=== PATIENT | female | born 1965 | race Caucasian/White ===

== ENCOUNTER 2019-10-05 14:11 | Outpatient (CLI) | payer BC, SELFPAY ==
--- NOTE | ~2019-10-05 | XR_ITS ---
EXAMINATION: XR chest 2V 10/05/2019 14:33 INDICATION: Shortness of breath and cough. Fever. PROCEDURE: 2 view chest COMPARISON: 04/19/2012 FINDINGS: The lungs are clear. The cardiomediastinal silhouette is within normal limits. There are no pleural effusions. There is no pneumothorax suspected. IMPRESSION: 1: NO ACUTE CARDIOPULMONARY DISEASE. Reviewed, dictated and finalized at location A.
[2019-10-05 14:51] LABS: Hematocrit 37.5 % (37.0-47.0); Mean Corpuscular Hemoglobin 28.6 pg (26-34); Mean Corpuscular Volume 89.5 fl (80-100); Platelet Count Result 349 k/mm3 (150-375); Red Blood Count 4.19 M/mm3 (4.2-5.4); Red Cell Distribution Width 13.3 % (11.5-14.5); White Blood Count 5.9 K/mm3 (4.5-10.0)
[2019-10-05 15:02] LABS: Blood Urea Nitrogen 9 mg/dL (7-17); Calcium 8.8 mg/dL (8.4-10.2); Carbon Dioxide 31 mmol/L (22-30); Chloride 104 mmol/L (98-107); Estimated Glomerular Filt Rate > 60; Glucose 92 mg/dL (65-105); Potassium 3.7 mmol/L (3.4-5.0); Sodium 140 mmol/L (137-145)
== END 2019-10-05 14:12 | disposition home or self-care (01) ==
PROVIDERS: PCP Family Medicine; Visit Provider Physician Assistant Medical
DX: R06.02 Shortness of breath (principal); B34.9 Viral infection, unspecified
CPT/HCPCS: 36415; 71046; 80048; 85027

== ENCOUNTER 2019-10-10 14:12 | Outpatient (CLI) | payer BC, SELFPAY ==
--- NOTE | 2019-10-10 14:32 | ECHO_ITS ---
Patient Info Name: Princess Schulz Age: 54 years : 1965 Gender: Female Ht: 64 in Wt: 190 lbs BSA: 2.01 m2 HR: 105 bpm BP: 145 / 100 mmHg Heart Rhythm: Sinus Rhythm Exam Date: 10/10/2019 2:58 PM Exam Location: [facility] Patient Status: Outpatient Admit Date: 10/10/2019 Staff Ordering Physician: Malorie Portillo PAC Traffic Signal Technician: Jen Adames RDCS Attending Provider: Malorie Portillo PAC Referring Physician: Lindsey MONREAL; Exam Type: CA echo doppler color flow Study Info Indications R01.1 - Cardiac murmur, unspecified Complete two-dimensional, color flow and Doppler transthoracic echocardiogram is performed. Summary 1. Left ventricular chamber dimension is normal. 2. Left ventricular systolic function is normal, estimated at 60-65%. 3. The left ventricular diastolic function is grade I diastolic dysfunction. 4. E/e' 8 is minimally elevated. Left Ventricle E/e' 8 is minimally elevated. Left ventricular chamber dimension is normal. Left ventricular systolic function is normal, estimated at 60-65%. The left ventricular diastolic function is grade I diastolic dysfunction. Right Ventricle Right ventricular chamber dimension is normal. Right ventricular systolic function is normal. Left Atria Left atrial chamber dimension is normal. Right Atria Right atrial chamber dimension is normal. Aortic Valve The aortic valve is trileaflet. There is no aortic valve stenosis. There is no aortic valve regurgitation. Pulmonic Valve There is no pulmonic regurgitation. Mitral Valve There is no mitral valve stenosis. There is no mitral valve regurgitation. Tricuspid Valve There is no tricuspid valve regurgitation. Pericardium/Pleural There is no pericardial effusion. Inferior Vena Cava Normal inferior vena cava with >50% collapse upon inspiration consistent with normal right atrial pressure, 5 mmHg. Aorta The aortic root size at the sinus of Valsalva is normal. Left Ventricular Outflow Tract Name Value Normal LVOT 2D LVOT Diameter 2.0 cm LVOT Doppler LVOT Peak Gradient 4 mmHg LVOT Mean Gradient 2 mmHg LVOT VTI 23 cm LVOT VTI/AV VTI Ratio 0.8 LVOT Stroke Volume 73 ml Pulmonic Valve Name Value Normal RVOT Doppler RVOT Peak Gradient 3 mmHg PV Doppler PV Peak Gradient 5 mmHg Mitral Valve Name Value Normal MV Doppler
== END 2019-10-10 14:13 | disposition home or self-care (01) ==
PROVIDERS: PCP Family Medicine; Visit Provider Physician Assistant Medical
DX: R01.1 Cardiac murmur, unspecified (principal)
CPT/HCPCS: 93306

== ENCOUNTER 2019-10-18 16:02 | Outpatient (CLI) | payer BC, SELFPAY ==
[2019-10-23 14:58] LABS: EBV Nuclear Ab Antibody <18.00 U/mL (<18.00); EBV Nuclear Ab Interpretation Recent; EBV Virus Capsid Ag IgG Ab >750.00 U/mL (<18.00); EBV Virus Capsid Ag IgM Ab <36.00 U/mL (<36.00)
== END 2019-10-18 16:03 | disposition home or self-care (01) ==
PROVIDERS: PCP Family Medicine; Visit Provider Physician Assistant Medical
DX: B34.9 Viral infection, unspecified (principal)
CPT/HCPCS: 36415; 86664; 86665

== ENCOUNTER 2019-10-19 12:50 | Outpatient (CLI) | payer BC, SELFPAY ==
[2019-10-23 18:58] LABS: CMV IgM Antibody <30.00 AU/mL (<30.00)
[2019-10-23 19:31] LABS: CMV IgG Antibody <0.60 U/mL (<0.60)
== END 2019-10-19 12:51 | disposition home or self-care (01) ==
PROVIDERS: PCP Family Medicine; Visit Provider Physician Assistant Medical
DX: B34.9 Viral infection, unspecified (principal)
CPT/HCPCS: 36415; 86644; 86645

== ENCOUNTER 2019-10-26 10:43 | Outpatient (CLI) | payer BC, SELFPAY ==
[2019-10-26 11:14] LABS: Alanine Aminotransferase 19 U/L (4-35); Albumin Level 4.4 g/dL (3.5-5.1); Alkaline Phosphatase 64 U/L (38-126); Aspartate Amino Transferase 25 U/L (14-36); Bilirubin,Total 0.7 mg/dL (0.2-1.3); Blood Urea Nitrogen 9 mg/dL (7-17); Calcium 9.3 mg/dL (8.4-10.2); Carbon Dioxide 29 mmol/L (22-30); Chloride 104 mmol/L (98-107); Estimated Glomerular Filt Rate > 60; Glucose 93 mg/dL (65-105); Sodium 138 mmol/L (137-145)
--- NOTE | 2019-10-26 12:00 | ECG_ITS ---
Measurements Intervals [place] Rate: 79 P: 25 MN: 131 QRS: -12 QRSD: 96 T: 46 QT: 375 QTc: 431 Interpretive Statements SINUS RHYTHM BORDERLINE R WAVE PROGRESSION, ANTERIOR LEADS BORDERLINE ECG Electronically Signed On 10-26-2019 12:31:24 CDT by Gustavo Broussard D.O.
--- NOTE | 2019-11-11 12:07 | WPDHOLTEREM ---
Holter/Event Monitor Holter/Event Monitor Date of procedure: 10/28/19 Procedure Type: 48 hour holter monitor Indications: Palpitations Conclusion: 1. 48 hour holter monitor on 10/28/19. 2. Underlying rhythm is sinus rhythm. HR range 56-130 bpm; average HR 90 bpm. 3. There are 37 premature supraventricular complexes, 2 supraventricular couplets and 1 supraventricular triplet. No supraventricular tachycardia. 4. There are 2 premature ventricular complexes. No ventricular tachycardia. 5. No sinoatrial or atrioventricular blocks. No significant pauses greater than 2 seconds. 6. No symptoms available for correlation.
== END 2019-10-26 10:44 | disposition home or self-care (01) ==
PROVIDERS: PCP Family Medicine; Visit Provider Internal Medicine Cardiovascular Disease
DX: I25.10 Atherosclerotic heart disease of native coronary artery without angina pectoris (principal); R00.2 Palpitations; R94.31 Abnormal electrocardiogram [ECG] [EKG]
CPT/HCPCS: 36415; 80053; 93005; 93225; 93226

== ENCOUNTER 2019-12-19 16:58 | Outpatient (CLI) | payer BC, SELFPAY ==
[2019-12-19 17:22] LABS: Basophils Absolute Auto 0.1 K/mm3 (0.0-0.1); Basophils Percent Auto 1.4 % (0.2-1.2); Eosinophils Absolute Auto 0.2 K/mm3 (0-0.3); Eosinophils Percent Auto 3.7 % (0-4.4); Hematocrit 39.8 % (37.0-47.0); Hemoglobin 12.9 g/dL (12.0-15.0); Immature Granulocyte Absolute 0.02 K/mm3 (0.00-0.031); Immature Granulocyte Percent A 0.5 % (0-0.5); Lymphocytes Absolute Auto 0.86 K/mm3 (0.9-3.2); Lymphocytes Percent Auto 19.7 % (18.3-44.2); Mean Corpuscular HGB Conc 32.4 g/dl (32-36); Mean Corpuscular Hemoglobin 28.9 pg (26-34); Mean Corpuscular Volume 89.2 fl (80-100); Mean Platelet Volume 9.8 fl (7.4-10.4); Monocytes Absolute Auto 0.4 K/mm3 (0.1-0.6); Neutrophils Absolute Auto 2.9 K/mm3 (1.3-6.7); Neutrophils Percent Auto 66.7 % (45.5-73.1); Platelet Count Result 349 k/mm3 (150-375); Red Blood Count 4.46 M/mm3 (4.2-5.4); Red Cell Distribution Width 13.3 % (11.5-14.5); White Blood Count 4.4 K/mm3 (4.5-10.0)
[2019-12-19 17:33] LABS: Blood Urea Nitrogen 15 mg/dL (7-17); Calcium 9.2 mg/dL (8.4-10.2); Carbon Dioxide 27 mmol/L (22-30); Chloride 105 mmol/L (98-107); Estimated Glomerular Filt Rate > 60; Glucose 104 mg/dL (65-105); Potassium 4.6 mmol/L (3.4-5.0); Sodium 138 mmol/L (137-145)
[2019-12-19 17:48] LABS: Erythrocyte Sedimentation Rate 22 mm/hr (0-20)
[2019-12-22 21:55] LABS: ANA Cascade Screen Negative (Negative)
== END 2019-12-19 16:59 | disposition home or self-care (01) ==
LOC: ANHLAB 17:00
PROVIDERS: PCP Family Medicine; Visit Provider Physician Assistant Medical
DX: E55.9 Vitamin D deficiency, unspecified (principal)
CPT/HCPCS: 36415; 80048; 82306; 82607; 84443; 85025; 85652; 86038

== ENCOUNTER 2020-01-02 16:25 | Outpatient (CLI) | payer BC, SELFPAY ==
[2020-01-02 16:59] LABS: Basophils Absolute Auto 0.1 K/mm3 (0.0-0.1); Basophils Percent Auto 0.9 % (0.2-1.2); Eosinophils Absolute Auto 0.1 K/mm3 (0-0.3); Eosinophils Percent Auto 2.6 % (0-4.4); Hematocrit 36.2 % (37.0-47.0); Immature Granulocyte Absolute 0.01 K/mm3 (0.00-0.031); Immature Granulocyte Percent A 0.2 % (0-0.5); Lymphocytes Percent Auto 22.6 % (18.3-44.2); Mean Corpuscular HGB Conc 33.1 g/dl (32-36); Mean Corpuscular Hemoglobin 28.9 pg (26-34); Mean Corpuscular Volume 87.2 fl (80-100); Mean Platelet Volume 9.8 fl (7.4-10.4); Monocytes Absolute Auto 0.4 K/mm3 (0.1-0.6); Monocytes Percent Auto 7.2 % (2.6-8.5); Neutrophils Absolute Auto 3.5 K/mm3 (1.3-6.7); Neutrophils Percent Auto 66.5 % (45.5-73.1); Platelet Count Result 340 k/mm3 (150-375); Red Blood Count 4.15 M/mm3 (4.2-5.4); Red Cell Distribution Width 13.1 % (11.5-14.5); White Blood Count 5.3 K/mm3 (4.5-10.0)
[2020-01-02 17:13] LABS: Rheumatoid Factor < 8.6 IU/ML (<12)
== END 2020-01-02 16:26 | disposition home or self-care (01) ==
PROVIDERS: PCP Family Medicine; Visit Provider Physician Assistant Medical
DX: D72.9 Disorder of white blood cells, unspecified (principal); M25.50 Pain in unspecified joint
CPT/HCPCS: 36415; 85025; 86430

== ENCOUNTER 2020-02-29 02:52 | Outpatient (CLI) | payer BC, SELFPAY ==
[2020-02-29 18:39] LABS: SARS-CoV-2 RNA PCR Negative
== END 2020-02-29 02:53 | disposition home or self-care (01) ==
LOC: ANHCOVIDDT 02:52
PROVIDERS: PCP Family Medicine; Visit Provider Internal Medicine Critical Care Medicine
DX: R68.89 Other general symptoms and signs (principal); Z20.828 Contact with and (suspected) exposure to other viral communicable diseases
CPT/HCPCS: 87635; C9803; U0003

== ENCOUNTER 2020-03-02 07:00 | Outpatient (CLI) | payer BC, SELFPAY ==
--- NOTE | 2020-03-19 22:38 | WPDSLEEPSTUD ---
Sleep Study Date of Study: 03/02/20 Ordering Provider: Gustavo Broussard DO Interpreting Physician: Saundra Merino MD Sleep Study Type: Split Polysomnogram Height: 1.63 m Weight: 79.832 kg Body Mass Index: 30.2 Burns: 15 Reason for Sleep Study Hypersomnia Sleep History Princess Schulz is a 54 yo female with constant loud snoring and nonrestorative sleep. This has become worse in the last 6-9 months. She wakes up during the night. She occasionally wakes at night with shortness of breath aor heartburn. She occasionally has trouble sleeping with a cold, occasionally gasps for breath at night, Frequently has breathing problems at night witnessed by others. SHe rarely sweats excessively at night. She frequently notices her heart pounding at night, frequently flass asleep in the day, occasionally involuntarily, rarely while driving, never during physical exertion. She does not have loss of muscle tone with strong emotion. 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 She never feels paralyzed on waking or falling asleep, occasionally has vivid dream like scenes on waking or falling asleep, never is afraid to go to bed. She frequently has nightmares lately, occasionally remembers her dreams, frequently has racing thoughts. She has occasional feelings of sadness and depression, and frequently feels anxious. She frequently has muscular tension, occasionally notices parts of her body jerking. She does not kick during the night. She frequently has achy and crawly feelings in her legs, occasionally has leg pain at night, rarely has morning jaw pain, occasionally grinds her teeth during sleep. She constantly has pain in the day, occasionally is awakened by pain at night, frequently wakes feeling stiff in the morning with sore achy muscles and pain in the neck and spine. She has dizziness, fatigue, memory problems, insomnia, concentration difficulties, headaches, and palpitations. Normal bedtime is 11:00 p.m. to midnight, falling asleep within 30 to 60 minutes, waking 3-4 times at night and will stay awake for a while, lying in bed, turning the TV on and off, trying to return to sleep. She wakes between 6:30 am and 7:00 a.m. not feeling refreshed, keeping the same schedule on the weekends. She occasionally takes a nap, however a short nap is not refreshing. She is drowsy in the morning for 3 hours or longer, feels better in the afternoon than other times of day. Habits: never smoked tobacco; caffeine - 1-2 glasses on occasion; no alcohol. FOR[facility]LY [facility], LATER [facility] Past Medical History Medical History (Updated 03/19/20 @ 23:40 by Saundra Merino MD) Arthritis CAD (coronary artery disease) Depression with anxiety Candace-Wilson infection Essential hypertension Hyperlipidemia Palpitations Surgical History Surgical History (Updated 03/19/20 @ 23:01 by Saundra Merino MD) History of cervical spinal surgery History of delivery S/P cholecystectomy Social History Social History Smoking status: Never smoker Alcohol intake: never Medications diazepam 2 mg po b.i.d. p.r.n. duloxetine 30 mg po daily vitamin D2 50,000 units po weekly meloxicam 15 mg po daily Sleep Procedure This test was performed using the same and multiple channel system including EOG, EEG, submental EMG, EKG, nasal and oral airflow using thermistors and nasal pressure sensors, chest and abdominal belts for body position data, and pulse oximetry. Video monitoring was also performed. The study was scored using CMS guidelines. After the baseline portion the patient met criteria for a titration with an AHI of 21.8. Sleep Architecture Baseline During the baseline, recording time was 182.2 minutes, sleep time was 151.2 minutes; sleep efficiency was 83.1%. Sleep latency was short at 4.9 minutes consistent with hypersomnia. REM latency was 105.5 minutes, normal. There were 17 awakenin
[2020-03-19 23:52] VITALS: BMI 30.2
== END 2020-03-02 07:01 | disposition home or self-care (01) ==
PROVIDERS: PCP Family Medicine; Visit Provider Internal Medicine Cardiovascular Disease
DX: G47.33 Obstructive sleep apnea (adult) (pediatric) (principal)
CPT/HCPCS: 95811

== ENCOUNTER 2020-08-24 15:00 | Outpatient (CLI) | payer BC, SELFPAY | END 2020-08-24 15:01 | disposition home or self-care (01) | LOC: ANHCOVIDVC 15:00 | PROVIDERS: PCP Family Medicine | DX: Z23 Encounter for immunization (principal) | CPT/HCPCS: 0001A; 91300 ==

== ENCOUNTER 2020-09-14 14:57 | Outpatient (CLI) | payer BC, SELFPAY | END 2020-09-14 14:58 | disposition home or self-care (01) | LOC: ANHCOVIDVC 14:57 | PROVIDERS: PCP Family Medicine | DX: Z23 Encounter for immunization (principal) | CPT/HCPCS: 0002A; 91300 ==

== ENCOUNTER 2020-09-27 17:09 | Outpatient (CLI) | payer BC, SELFPAY ==
[2020-09-27 17:29] LABS: Basophils Absolute Auto 0.1 K/mm3 (0.0-0.1); Basophils Percent Auto 0.6 % (0.2-1.2); Eosinophils Absolute Auto 0.3 K/mm3 (0-0.3); Eosinophils Percent Auto 3.1 % (0-4.4); Hematocrit 42.3 % (37.0-47.0); Immature Granulocyte Absolute 0.03 K/mm3 (0.00-0.031); Immature Granulocyte Percent A 0.4 % (0-0.5); Lymphocytes Absolute Auto 0.92 K/mm3 (0.9-3.2); Lymphocytes Percent Auto 11.5 % (18.3-44.2); Mean Corpuscular HGB Conc 33.1 g/dl (32-36); Mean Corpuscular Hemoglobin 28.8 pg (26-34); Monocytes Absolute Auto 0.6 K/mm3 (0.1-0.6); Monocytes Percent Auto 7.6 % (2.6-8.5); Neutrophils Absolute Auto 6.2 K/mm3 (1.3-6.7); Neutrophils Percent Auto 76.8 % (45.5-73.1); Platelet Count Result 409 k/mm3 (150-375); Red Blood Count 4.86 M/mm3 (4.2-5.4); Red Cell Distribution Width 12.7 % (11.5-14.5)
[2020-09-27 17:41] LABS: Alanine Aminotransferase 28 U/L (4-35); Albumin Level 4.8 g/dL (3.5-5.1); Alkaline Phosphatase 72 U/L (38-126); Anion Gap 5 mmol/L (8-16); Aspartate Amino Transferase 40 U/L (14-36); Bilirubin,Total 0.6 mg/dL (0.2-1.3); Blood Urea Nitrogen 14 mg/dL (7-17); Calcium 9.7 mg/dL (8.4-10.2); Carbon Dioxide 32 mmol/L (22-30); Chloride 103 mmol/L (98-107); Cholesterol 232 mg/dL (0-200); Estimated Glomerular Filt Rate > 60; Glucose 106 mg/dL (65-105); HDL Direct 63 mg/dL; Potassium 3.5 mmol/L (3.4-5.0); Sodium 140 mmol/L (137-145); Triglycerides 139 mg/dL (<150)
[2020-09-27 17:56] LABS: LDL Cholesterol Direct 120 mg/dL
[2020-09-27 18:44] LABS: Vitamin D 25 Hydroxy < 12.8 ng/mL
== END 2020-09-27 17:10 | disposition home or self-care (01) ==
LOC: ANHLAB 17:12
PROVIDERS: PCP Family Medicine; Visit Provider Nurse Practitioner Family
DX: E78.5 Hyperlipidemia, unspecified (principal); R68.89 Other general symptoms and signs; Z86.79 Personal history of other diseases of the circulatory system; R60.9 Edema, unspecified; Z13.29 Encounter for screening for other suspected endocrine disorder; E55.9 Vitamin D deficiency, unspecified; E53.8 Deficiency of other specified B group vitamins
CPT/HCPCS: 36415; 80053; 80061; 82306; 82607; 84443; 85025

== ENCOUNTER → 2020-09-29 06:44 | Outpatient (CLI) | payer BC, SELFPAY ==
[2020-09-29 12:23] LABS: Influenza Control Positive
[2020-09-30 00:41] LABS: SARS-CoV-2 RNA PCR Negative
== END ==
PROVIDERS: PCP Family Medicine; Visit Provider Nurse Practitioner Family
DX: Z20.822 Contact with and (suspected) exposure to COVID-19 (principal); R68.89 Other general symptoms and signs
CPT/HCPCS: 87804; C9803; U0003; U0005

== ENCOUNTER → 2020-10-23 04:29 | Outpatient (CLI) | payer BC, SELFPAY ==
[2020-10-23 20:07] LABS: SARS-CoV-2 RNA PCR Negative
== END ==
PROVIDERS: PCP Family Medicine; Visit Provider Podiatrist Foot & Ankle Surgery
DX: Z01.812 Encounter for preprocedural laboratory examination (principal); Z20.828 Contact with and (suspected) exposure to other viral communicable diseases
CPT/HCPCS: C9803; U0003; U0005

== ENCOUNTER 2020-10-26 03:52 | Day surgery (SDC) | payer BC, SELFPAY ==
[2020-10-17 11:49] VITALS: BMI 30.9
--- NOTE | 2020-10-25 08:36 | WPDANESEPPF ---
Anes - Initial Pre Proc Eval Procedure: Operation Date: 10/26/20 08:30 Proposed Procedures p RetroCalcaneal Exostectomy, Detachment And Reattachment Of Achilles Tendon, Right Foot - Luís Dolan JR, MD Date/Time: 10/25/20 08:36 Surgeon: Luís Dolan JR, MD Pre Op Diagnosis: achilles tendinopathy Patient Data Age: 55 Gender: F Height: 1.63 m Weight: 81.65 kg Allergies Allergy/AdvReac Type Severity Reaction Status Date / Time Penicillins Allergy Unknown Unknown Verified 10/26/20 07:05 codeine AdvReac Mild Nausea and Verified 10/26/20 07:05 Vomiting oxycodone AdvReac Mild Nausea and Verified 10/26/20 07:05 Vomiting Home Medications Medication Instructions Recorded Confirmed Type [id number]-xzmqifytngsga-qyatiojv 250 1 tablet PO Q4-6H PRN 10/24/19 10/26/20 History mg-250 mg-65 mg tablet diazepam 2 mg tablet 2 mg PO BID PRN #30 tablet 02/06/20 10/26/20 Rx cholecalciferol (vitamin D3) 1,250 1,250 mcg PO WEEKLY 56 Days #8 cap 09/28/20 10/26/20 Rx mcg (50,000 unit) capsule diclofenac sodium [Voltaren] 2 g TOPICAL QID 10/17/20 10/26/20 History Patient hx anesthesia problems: none Family hx anesthesia problems: none PMFSH Past Medical History Medical History (Updated 10/25/20 @ 08:36 by Shon Bundy DO) Arthritis CAD (coronary artery disease) Depression with anxiety Candace-Wilsno infection Essential hypertension NOT TAKING ANY MEDICATION Palpitations Surgical History Surgical History History of cervical spinal surgery History of delivery S/P cholecystectomy Social History Social History Smoking status: Never smoker Alcohol intake: never Substance use: never Substance use type: does not use Living arrangements: with family Spiritual care concerns: No Anes - Eval Final PreProcedure Day of Procedure 10/25/20 08:36 Patient weight: obese Heart: regular rate and rhythm Lungs: clear to auscultation and normal air movement Airway: Mallampati scale class II Neurological: alert and oriented Last oral intake: >/= 8 hours ASA classification: III Emergent: no Anesthetic plan: proceed Anesthesia type and monitoring: general LMA and standard monitoring Informed Consent: The patient's anesthetic plan and its attendant risks and benefits were discussed with the patient/family/POA. Questions were solicited and answers provided to the satisfaction of the patient/family/POA.
[2020-10-26] VITALS (9 sets, daily range): BP systolic 101–131; BP diastolic 60–77; PULSE 80–100; RESP 10–18; TEMP 36.2–36.7; O2SAT 96–100
--- NOTE | ~2020-10-26 | XR_ITS ---
EXAMINATION: XR surgery orthopedic EXAM DATE: 10/26/2020 14:50 INDICATION: Right foot calcaneal exostosis. TECHNIQUE: Fluoroscopy used during XR surgery orthopedic performed by Dr. Luís Dolan JR MD. Radiologist was not present for the imaging or procedure. Total fluoroscopic time of 9 seconds. The DAP for this procedure was 1.1 cGycm2. A total of 3 images sent to PACS from the exam. FINDINGS: There is soft tissue surgical defect along the posterior aspect of the calcaneus, underlyi ng osteotomy. Correlate with procedure note. IMPRESSION: Fluoroscopy used during right calcaneal surgery. Reviewed, dictated and finalized at location A.
[2020-10-26] MEDS: LACTATED RINGERS 1,000 ML 30 ML IV CONT ×2 (07:20→09:53)
--- NOTE | 2020-10-26 07:20 | WPDHPUPDATE1 ---
History and Physical Update Update Date/Time: 10/26/20 07:20 History and Physical has been reviewed, including an updated exam of the patient. There are NO changes in the patient's condition. Risks, benefits, and alternatives have been discussed and questions answered. Patient agrees to proceed with procedure.
[2020-10-26] MEDS: CLINDAMYCIN 900 MG/D5W 50 ML 900 MG/50 ML PIGGYBACK 50 MG IVPB (08:19)
--- NOTE | 2020-10-26 09:54 | PM.PROC ---
Procedure Note - Detailed Date of procedure: 10/26/20 Pre-op diagnosis: achilles tendinopathy Achilles Insertional Calcific Tendinosis right foot Post-op diagnosis: same Procedure performed: Retrocalcaneal esostectomy with detachment and reattachement of the Achilles Tendon Anesthesia: GETA and local Surgeon: Luís Dolan JR, DPM Estimated blood loss (mL): 1 Drains: No Packing: No Pathology: yes (Retrocalcaneal calcification sent for gross and histopathology) Complications: No immediate complications Condition: stable Disposition: same day Findings: Under mild sedation, the patient was brought to the operating room, placed on the operating table in the prone position. A pneumatic thigh tourniquet was placed about the patient's right thigh . Following general anesthesia I performed a local anesthetic nerve block with 20cc's of Exparel along with a proximal tibial nerve block. The right foot and distal leg was then scrubbed, prepped, and draped in the usual aseptic manner. An Esmarch bandage was then used to examine the patient's right foot and pneumatic thigh tourniquet was then inflated. Surgery began in the following manner. Attention was directed to the posterior aspect of right leg where a curvilinear J shaped incision was made lateral to the retrocalcaneal exostosis which was palpable. The incision was made starting 6cm above the insertion of the Achilles and extending 3cm inferior and medial to the calcaneus. The incision was continued deep down through the subcutaneous tissues using sharp and blunt dissection. All bleeders were cauterized as necessary. At this point dissection was continued exposing the the insertional component of the Achilles Tendon. There was noted hypertrophy to the distal tendon. A midsubstance linear Achilles tendon incision was made exposing a large intrasubstance calcified region of bone which was carefully excised and sent for gross and histopathology. There was a large posterior and superior exostosis noted which was resected with an osteotome and mallet and feathered smooth with a sagittal saw blade. All rough edges were smoothed with a power dada and bone rasp. The area was flushed with copious amounts of sterile saline. Fluoroscopy was used to make sure that enough of the retrocalcaneal region was resected approximately 3m from superior to inferior and medial to lateral and 2cm from posterior to anterior. Next, utilizing standard principle and techniques the Arthrex SpeedBridge system was used to reattach the debulked Achilles tendon to the posterior calcaneus. Comparable tension to the contralateral foot was maintained. Adequate stable reattachment was noted. I flushed the wound site with copious amounts of sterile saline. Next, the paratenon and overlying subcutaneous tissue was reapproximated with 3-0 Vicryl and 4-0 Vicryl correspondingly. Next, the skin was reapproximated and coapted util 4-0 Monocryl in running subcuticular suture fashion technique. Upon completion of the procedure, the incision was dressed with Adaptic, 4 x 4's, Kerlix, and Ti Wrap. The pneumatic thigh tourniquet was then deflated and a prompt hyperemic response noted to all digits of the right foot. A posterior splint was then applied. The patient did very well with the procedure and the anesthesia. He was transferred to the recovery room with vital signs stable and vascular status intact to all toes of the right foot. Following a period of postoperative monitoring, the patient will be discharged home on the following written and oral postoperative instructions: 1. Keep the dressing clean, dry, and intact. Use a cast protector bag with showers. 2. The patient to be strictly nonweightbearing with a knee scooter. 3. The patient should ice and elevate the right foot when at rest. 4. The patient to contact Dr. Dolan for all postop care and if any problems arise. 5. Prescriptions were written for Percocet 5/325 dispensed 40 to
[2020-10-26] MEDS: fentaNYL CITRATE INJ (*CRX) 100 MCG/2 ML VIAL 25 MCG IV PUSH ×6 (10:11→11:01)
--- NOTE | 2020-10-26 11:06 | SUR.PHASEII ---
[id number] PT STATES SHE SPOKE WITH DR FAN IN REGARDS TO PAIN MEDICATION POST OP. PT & DR AGREED TO SEND PERCOCET HOME ALONG WITH AN ANTIMEDIC MEDICATION.
== END 2020-10-26 11:45 | disposition home or self-care (01) ==
PROVIDERS: PCP Family Medicine; Visit Provider Podiatrist Foot & Ankle Surgery
PROC: (CPT 27650; principal; 2020-10-26 08:30)
DX: M65.271 Calcific tendinitis, right ankle and foot (principal); I25.10 Atherosclerotic heart disease of native coronary artery without angina pectoris; I10 Essential (primary) hypertension; F41.8 Other specified anxiety disorders; E66.9 Obesity, unspecified; Z68.30 Body mass index [BMI] 30.0-30.9, adult
CPT/HCPCS: 28118; 88304; 88309; 88311; A9270; C1713; C9290; C9803; J0330; J1100; J2250; J2405; J2704; J3010; J7120; U0003; U0005

== ENCOUNTER → 2021-03-18 09:10 | Outpatient (CLI) | payer BC, SELFPAY ==
[2021-03-18 20:20] LABS: SARS-CoV-2 RNA PCR Negative
== END ==
PROVIDERS: PCP Family Medicine; Visit Provider Physician Assistant Medical
DX: R09.89 Other specified symptoms and signs involving the circulatory and respiratory systems (principal); Z20.822 Contact with and (suspected) exposure to COVID-19
CPT/HCPCS: C9803; U0003; U0005

== ENCOUNTER 2021-03-27 17:24 | Outpatient (CLI) | payer BC, SELFPAY ==
--- NOTE | ~2021-03-27 | XR_ITS ---
EXAMINATION: XR chest 2V DATE: 03/27/2021 17:39 INDICATION: Acute bronchitis, cough TECHNIQUE: PA and lateral views of the chest are obtained. COMPARISON: 10/05/2019 FINDINGS: The lungs are free of acute opacities. There is no pleural effusion or pneumothorax. The ca rdiomediastinal silhouette is normal. There is exaggerated kyphosis of the lower thoracic spine. Daniel ges of anterior fusion are seen in the lower cervical spine. There are cholecystectomy clips in the r ight upper quadrant. IMPRESSION: 1. No acute cardiopulmonary abnormality. Reviewed, dictated and finalized at location A.
== END 2021-03-27 17:25 | disposition home or self-care (01) ==
PROVIDERS: PCP Family Medicine; Visit Provider Nurse Practitioner Family
DX: J20.9 Acute bronchitis, unspecified (principal)
CPT/HCPCS: 71046

== ENCOUNTER 2021-07-09 16:09 | Outpatient (CLI) | payer BC, SELFPAY ==
--- NOTE | ~2021-07-09 | XR_ITS ---
EXAMINATION: XR_CERV2-3V_CR DATE: 07/09/2021 16:37 INDICATION: Left arm numbness and tingling. TECHNIQUE: 3 views of cervical spine on 4 radiographs were obtained. COMPARISON: Cervical spine radiographs 12/15/2014, MRI 11/01/2016 FINDINGS: There is 2 mm retrolisthesis of C4 on C5. There is 3 degrees dextrocurvature of cervicothor acic spine. Vertebral body heights are normal. There are changes of anterior fusion procedure from C5 to C7 with healed interbody bone graft and anterior plate and screws. There is mildly decreased disc height at C3-C4 and C4-C5. At C4-C5, there is mild right and moderate left uncovertebral joint osteo arthritis. The facet joints are unremarkable. There is mild central canal stenosis at C4-C5. No preve rtebral soft tissue swelling. IMPRESSION: 1. Mild cervical spondylosis. 2. Anterior fusion procedure from C5 to C7. Reviewed, dictated and finalized at location E. FRAMER
[2021-07-09 17:40] LABS: Basophils Absolute Auto 0.1 K/mm3 (0.0-0.1); Basophils Percent Auto 0.6 % (0.2-1.2); Eosinophils Percent Auto 0.2 % (0-4.4); Hematocrit 47.4 % (37.0-47.0); Hemoglobin 15.5 g/dL (12.0-15.0); Immature Granulocyte Absolute 0.04 K/mm3 (0.00-0.031); Immature Granulocyte Percent A 0.5 % (0-0.5); Lymphocytes Absolute Auto 1.19 K/mm3 (0.9-3.2); Lymphocytes Percent Auto 14.6 % (18.3-44.2); Mean Corpuscular HGB Conc 32.7 g/dl (32-36); Mean Corpuscular Volume 88.8 fl (80-100); Mean Platelet Volume 9.3 fl (7.4-10.4); Monocytes Absolute Auto 0.7 K/mm3 (0.1-0.6); Monocytes Percent Auto 8.3 % (2.6-8.5); Neutrophils Absolute Auto 6.2 K/mm3 (1.3-6.7); Neutrophils Percent Auto 75.8 % (45.5-73.1); Platelet Count Result 467 k/mm3 (150-375); Red Blood Count 5.34 M/mm3 (4.2-5.4); Red Cell Distribution Width 13.4 % (11.5-14.5); White Blood Count 8.2 K/mm3 (4.5-10.0)
[2021-07-09 17:49] LABS: Alanine Aminotransferase 33 U/L (4-35); Albumin Level 5.3 g/dL (3.5-5.1); Alkaline Phosphatase 76 U/L (38-126); Anion Gap 10 mmol/L (8-16); Aspartate Amino Transferase 30 U/L (14-36); Bilirubin,Total 1.1 mg/dL (0.2-1.3); Blood Urea Nitrogen 21 mg/dL (7-17); Calcium 10.3 mg/dL (8.4-10.2); Carbon Dioxide 26 mmol/L (22-30); Chloride 101 mmol/L (98-107); Cholesterol 238 mg/dL (0-200); Estimated Glomerular Filt Rate > 60; Glucose 119 mg/dL (65-110); HDL Direct 49 mg/dL; Potassium 4.2 mmol/L (3.4-5.0); Sodium 137 mmol/L (137-145); Triglycerides 121 mg/dL (<150)
[2021-07-09 18:00] LABS: LDL Cholesterol Direct 137 mg/dL
[2021-07-09 18:08] LABS: Add Urine Microscopic? YES; Appearance Urine Cloudy (Clear); Bacteria Urine Trace /hpf; Bilirubin Urine Negative (Negative); Color Urine Yellow (Yellow); Glucose Urine UA Negative (Negative); Ketones Urine Trace mg/dL (Negative); Leukocyte Esterase Ur Trace LEU/UL (Negative); Mucus Urine Heavy /lpf; Nitrate Urine Positive (Negative); Protein Urine 1+ mg/dL (Negative); Specific Grav Ur 1.029 (1.001-1.035); Squamous Epithelial Cell Urine Many /hpf (Few); Urobilinogen Urine Negative mg/dL (<2.0); WBC Urine 16-20 /hpf
[2021-07-09 18:14] LABS: Blood Urine Negative (Negative)
[2021-07-09 18:57] LABS: Vitamin D 25 Hydroxy 19.7 ng/mL
[2021-07-12 14:45] LABS: CMV IgM Antibody <30.00 AU/mL (<30.00)
[2021-07-13 21:33] LABS: EBV Nuclear Ab Antibody <18.00 U/mL (<18.00); EBV Nuclear Ab Interpretation Recent; EBV Virus Capsid Ag IgG Ab >750.00 U/mL (<18.00); EBV Virus Capsid Ag IgM Ab <36.00 U/mL (<36.00)
[2021-07-14 17:30] LABS: CMV IgG Antibody <0.60 U/mL (<0.60)
== END 2021-07-09 16:10 | disposition home or self-care (01) ==
LOC: ANHIMG 16:13
PROVIDERS: PCP Family Medicine; Visit Provider Nurse Practitioner Family
DX: M79.602 Pain in left arm (principal); R74.8 Abnormal levels of other serum enzymes; R53.83 Other fatigue; E55.9 Vitamin D deficiency, unspecified; B27.90 Infectious mononucleosis, unspecified without complication; Z98.1 Arthrodesis status; M47.812 Spondylosis without myelopathy or radiculopathy, cervical region
CPT/HCPCS: 36415; 72040; 80053; 80061; 81001; 82306; 82607; 84443; 85025; 86644; 86645; 86664; 86665; 87077; 87086; 87186

== ENCOUNTER 2021-08-19 14:14 | Emergency (ER) | payer BC, SELFPAY ==
[2021-08-19] VITALS (7 sets, daily range): BP systolic 168–199; BP diastolic 79–98; PULSE 73–101; RESP 10–24; TEMP 36.7; O2SAT 98–100
--- NOTE | ~2021-08-19 | XR_ITS ---
XR chest 2V DATE: 08/19/2021 16:04 INDICATION: Shortness of breath. Bilateral edema for 3 days TECHNIQUE: AP and lateral views COMPARISON: 03/27/2021 2 view chest FINDINGS: Status post anterior cervical spine fusion at approximately C6-T1. Heart size is within normal range. No hilar or mediastinal enlargement. No pulmonary infiltrate or co nsolidation, pleural effusion or pulmonary vascular congestion or pneumothorax. Diffuse osteopenia. IMPRESSION: No active cardiopulmonary disease Reviewed, dictated and finalized at location A.
--- NOTE | ~2021-08-19 | US_ITS ---
EXAMINATION:US venous doppler LE BI INDICATION:Leg swelling TECHNIQUE: Multiple grayscale, color flow and Doppler images of the right and left lower extremity de ep venous systems were obtained and reviewed. COMPARISON:No prior studies for comparison. FINDINGS: The common femoral, superficial femoral and popliteal veins demonstrate normal respiratory variation, augmentation and compressibility. Color flow is also seen within the posterior tibial, pe roneal, greater saphenous and profunda veins. IMPRESSION: 1: No lower extremity deep venous thrombosis. Reviewed, dictated and finalized at location B.
--- NOTE | 2021-08-19 15:41 | ECG_ITS ---
Measurements Intervals [place] Rate: 71 P: 4 MT: 147 QRS: -16 QRSD: 112 T: 37 QT: 401 QTc: 437 Interpretive Statements SINUS RHYTHM MODERATE INTRAVENTRICULAR CONDUCTION DELAY [110+ ms QRS DURATION] COMPARED TO ECG 10/26/2019 12:14:33 INTRAVENTRICULAR CONDUCTION DELAY NOW PRESENT Electronically Signed On 08-20-2021 11:50:43 CDT by Carla Mcarthur M.D.
[2021-08-19] MEDS: FUROSEMIDE INJ 40 MG/4 ML VIAL IV PUSH (16:15)
--- NOTE | 2021-08-19 16:15 | ED.GENADULT ---
HPI - General Adult General Chief complaint: Shortness of Breath/Dyspnea Stated complaint: LE swelling Time Seen by Provider: 08/19/21 15:42 Source: patient and RN notes reviewed Mode of arrival: ambulatory Limitations: no limitations History of Present Illness HPI narrative: This is a 56 year old female with history of hypertension and anxiety who presents for evaluation of bilateral leg swelling. Patient has long history of pedal edema, but her swelling worsened 5 days ago. She has bilateral leg swelling up to her knees. 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 She reports severe pain to her legs due to her swelling. She denies chest pain. She has intermittent shortness of breath. She denies history of congestive heart failure and she does not take diuretics. She is hypertensive in ER and she has been off her blood pressure medication for a long time. She denies any recent travel. Related Data Home Medications Medication Instructions Recorded Confirmed [id number]-ifvegptejuott-bjhbjvor 250 1 tablet PO Q4-6H PRN 10/24/19 06/27/21 mg-250 mg-65 mg tablet Allergies Allergy/AdvReac Type Severity Reaction Status Date / Time Penicillins Allergy Unknown Unknown Verified 08/19/21 14:21 codeine AdvReac Mild Nausea and Verified 08/19/21 14:21 Vomiting oxycodone AdvReac Mild Nausea and Verified 08/19/21 14:21 Vomiting Review of Systems Review of Systems: All systems reviewed & are unremarkable except as noted in HPI and below PMFSH Past Medical History Medical History (Updated 08/19/21 @ 18:46 by Tianna Cristina MD) Achilles rupture, right Arthritis Bone spur CAD (coronary artery disease) Depression with anxiety Candace-Wilson infection Essential hypertension NOT TAKING ANY MEDICATION Palpitations Tendon calcification Surgical History Surgical History (Updated 07/18/21 @ 12:12 by Timothy Quispe NP) History of cervical spinal surgery History of delivery S/P cholecystectomy Family History Family History Father No problems noted. Mother No problems noted. Sibling No problems noted. 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 Gender identity (if verbalized by the patient): Female Spiritual care concerns: No Exam Const: General: alert Orientation/consciousness: patient oriented x3 Other: mild distress due to leg pain Eyes: EOM: EOMs intact bilaterally Chest: Chest palpation & inspection: normal inspection of the chest Resp: Effort & Inspection: normal respiratory effort and no retractions Auscultation: clear to auscultation bilaterally Cardio: Rate: regular rate Rhythm: regular rhythm Heart sounds: no murmurs GI: GI Palp: Yes Soft to palpation, No Tenderness to palpation present (GI) and No Guarding due to palpation present (GI) Auscultation: normal bowel sounds : General: Yes no CVA tenderness Skin: General skin exam: normal color Rashes: no rashes Neuro: General: patient oriented x3, moves all extremities and CN's II-XI intact bilaterally Extrem: Other: bilateral leg swelling, pedal up to knee, nonpitting. Psych: Mental Status: mental status grossly normal Affect: normal affect Course Reevaluation(s) Reevaluation #1: Patient presented with leg edema. No hypoxia or pulmonary edema to suggest need for hospitalization. She has been hypertensive according to record. I spoke with Dr. Hilario who will follow up with patient. AGree with discharge with leslie. Date: 08/19/21 Time: 18:43 Vital Signs Vital signs: Vital Signs Temperature 98.1 F 08/19/21 14:16 Pulse Rate 101 H 08/19/21 14:16 Respiratory Rate 22 H
[2021-08-19 16:22] LABS: Basophils Percent Auto 0.7 % (0.2-1.2); Eosinophils Absolute Auto 0.2 K/mm3 (0-0.3); Eosinophils Percent Auto 4.3 % (0-4.4); Hematocrit 35.1 % (37.0-47.0); Hemoglobin 11.7 g/dL (12.0-15.0); Immature Granulocyte Absolute 0.02 K/mm3 (0.00-0.031); Immature Granulocyte Percent A 0.4 % (0-0.5); Lymphocytes Absolute Auto 1.06 K/mm3 (0.9-3.2); Lymphocytes Percent Auto 18.9 % (18.3-44.2); Mean Corpuscular HGB Conc 33.3 g/dl (32-36); Mean Corpuscular Hemoglobin 29.3 pg (26-34); Mean Platelet Volume 9.7 fl (7.4-10.4); Monocytes Absolute Auto 0.4 K/mm3 (0.1-0.6); Monocytes Percent Auto 6.8 % (2.6-8.5); Neutrophils Absolute Auto 3.9 K/mm3 (1.3-6.7); Neutrophils Percent Auto 68.9 % (45.5-73.1); Platelet Count Result 333 k/mm3 (150-375); Red Blood Count 3.99 M/mm3 (4.2-5.4); Red Cell Distribution Width 12.7 % (11.5-14.5); White Blood Count 5.6 K/mm3 (4.5-10.0)
[2021-08-19 16:33] LABS: Alanine Aminotransferase 21 U/L (4-35); Albumin Level 4.3 g/dL (3.5-5.1); Alkaline Phosphatase 75 U/L (38-126); Anion Gap 6 mmol/L (8-16); Aspartate Amino Transferase 28 U/L (14-36); Bilirubin,Total 0.6 mg/dL (0.2-1.3); Blood Urea Nitrogen 6 mg/dL (7-17); Carbon Dioxide 27 mmol/L (22-30); Chloride 106 mmol/L (98-107); Estimated CRCL calculation 92 ml/min; Estimated Glomerular Filt Rate > 60; Glucose 85 mg/dL (65-110); Potassium 3.4 mmol/L (3.4-5.0); Sodium 139 mmol/L (137-145)
[2021-08-19 17:17] LABS: NT Pro B Type Natriuretic Pept 434 pg/mL (5-100); Troponin I < 0.012 ng/mL (0.000-0.034)
[2021-08-19] MEDS: traMADol HCL (*CRX) 50 MG TABLET PO (17:17)
[2021-08-19 17:27] LABS: Add Urine Microscopic? NO; Appearance Urine Clear (Clear); Bilirubin Urine Negative (Negative); Blood Urine Negative (Negative); Color Urine Colorless (Yellow); Glucose Urine UA Negative (Negative); Ketones Urine Negative (Negative); Leukocyte Esterase Ur Negative LEU/UL (Negative); Nitrate Urine Negative (Negative); Protein Urine Negative (Negative); Urobilinogen Urine Negative mg/dL (<2.0)
[2021-08-19 17:29] LABS: Specific Grav Ur 1.003 (1.001-1.035)
== END 2021-08-19 19:06 | disposition home or self-care (01) ==
PROVIDERS: Emergency Medicine; Emergency Provider General Practice; PCP Family Medicine
DX: R60.0 Localized edema (principal); I10 Essential (primary) hypertension; Z79.82 Long term (current) use of aspirin; M19.90 Unspecified osteoarthritis, unspecified site; I25.10 Atherosclerotic heart disease of native coronary artery without angina pectoris; Z77.22 Contact with and (suspected) exposure to environmental tobacco smoke (acute) (chronic); I45.9 Conduction disorder, unspecified
CPT/HCPCS: 36415; 71046; 80053; 81003; 83880; 84443; 84484; 85025; 93005; 93970; 96374; 99284; A9270; J1940

== ENCOUNTER 2022-04-24 13:04 | Outpatient (CLI) | payer BC, SELFPAY ==
[2022-04-24 13:34] LABS: Hematocrit 42.5 % (37.0-47.0); Hemoglobin 13.9 g/dL (12.0-15.0); Mean Corpuscular HGB Conc 32.7 g/dl (32-36); Mean Corpuscular Hemoglobin 29.1 pg (26-34); Mean Corpuscular Volume 89.1 fl (80-100); Mean Platelet Volume 9.4 fl (7.4-10.4); Platelet Count Result 430 k/mm3 (150-375); Red Blood Count 4.77 M/mm3 (4.2-5.4); Red Cell Distribution Width 12.9 % (11.5-14.5); White Blood Count 9.4 K/mm3 (4.5-10.0)
[2022-04-24 13:45] LABS: Alanine Aminotransferase 21 U/L (6-35); Albumin Level 4.8 g/dL (3.5-5.1); Alkaline Phosphatase 71 U/L (38-126); Anion Gap 14 mmol/L (8-16); Aspartate Amino Transferase 23 U/L (14-36); Bilirubin,Total 0.5 mg/dL (0.2-1.3); Blood Urea Nitrogen 21 mg/dL (7-17); Calcium 9.5 mg/dL (8.4-10.2); Carbon Dioxide 26 mmol/L (22-30); Chloride 101 mmol/L (98-107); Estimated Glomerular Filt Rate > 60; Glucose 122 mg/dL (65-110); Potassium 3.5 mmol/L (3.4-5.0); Sodium 141 mmol/L (137-145)
[2022-04-24 13:51] LABS: NT Pro B Type Natriuretic Pept 83 pg/mL (5-100)
[2022-04-24 14:12] LABS: Free T4 Free Thyroxine 1.68 ng/mL (0.78-2.19); Vitamin D 25 Hydroxy 20.6 ng/mL
== END 2022-04-24 13:05 | disposition home or self-care (01) ==
LOC: ANHLAB 13:06
PROVIDERS: PCP Family Medicine; Visit Provider Nurse Practitioner Family
DX: R74.8 Abnormal levels of other serum enzymes (principal); E55.9 Vitamin D deficiency, unspecified; R79.89 Other specified abnormal findings of blood chemistry; R71.0 Precipitous drop in hematocrit; I10 Essential (primary) hypertension; E53.8 Deficiency of other specified B group vitamins; R53.83 Other fatigue; L65.9 Nonscarring hair loss, unspecified
CPT/HCPCS: 36415; 80053; 82306; 82607; 83880; 84439; 84443; 85027

== ENCOUNTER 2023-01-28 15:15 | Emergency (ER) | payer BC, SELFPAY ==
--- NOTE | ~2023-01-28 | XR_ITS ---
EXAMINATION: XR sacrum coccyx min 2V INDICATION: Pain after fall TECHNIQUE: Three views of the sacrum and coccyx are obtained. COMPARISON: CT, 03/10/2013 FINDINGS: There appears to be a minimally displaced transverse fracture of the coccyx on the lateral view. Tubal ligation clips are noted. IMPRESSION: 1. Probable minimally displaced transverse fracture of the coccyx. Reviewed, dictated and finalized at location A.
--- NOTE | 2023-01-28 15:19 | ED.BACK ---
HPI - Back Pain/Injury General Chief Complaint: Back Pain/Injury Stated Complaint: Lower Back Injury Time Seen by Provider: 01/28/23 15:16 Source: patient Mode of arrival: ambulatory Limitations: no limitations History of Present Illness HPI Narrative: Olivia is a 57-year-old female patient presenting to the clinic today with complaints of tailbone pain after falling on Thursday. She reports she fell off a stool on Thursday and landed on her bottom. She is reporting tailbone pain. Having a lot of discomfort with sitting. Denies any saddle anesthesia or loss of bowel or bladder. Related Data Home Medications Medication Instructions Recorded Confirmed [id number] 250 1 tablet PO Q4-6H PRN Migraine 10/24/19 01/28/23 mg-250 mg-65 mg tablet (Excedrin Headache Migraine) Allergies Allergy/AdvReac Type Severity Reaction Status Date / Time Penicillins Allergy Unknown Unknown Verified 01/28/23 15:30 codeine AdvReac Mild Nausea and Verified 01/28/23 15:30 Vomiting Review of Systems Review of Systems: Pertinent positives per HPI. Patient denies any fever, chills, rash, headache, visual changes, dizziness, cough, runny nose, sore throat, shortness of breath, chest pain, palpitations, nausea, vomiting, diarrhea, constipation, abdominal pain, or any urinary issues. [facility] Past Medical History Medical History Achilles rupture, right Arthritis BMI 31.0-31.9,adult Bone spur CAD (coronary artery disease) Depression with anxiety Candace-Wilson infection Essential hypertension NOT TAKING ANY MEDICATION Other ill-defined heart diseases Palpitations Tendon calcification Surgical History Surgical History H/O foot surgery History of cervical spinal surgery History of delivery S/P cholecystectomy Social History Social History Smoking status: Never smoker Second hand tobacco smoke exposure: Yes Alcohol intake: current Substance use: never Substance use type: does not use Living arrangements: with family Occupation/Education: occupation 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 There is no relevant family history pertinent to the patient complaint. Exam Narrative: General: Well-developed, well nourished, in no apparent distress Head: Normocephalic, atraumatic. Cardio: Regular rate and rhythm, s1 and s2 normal, no murmur appreciated. Resp: Clear to auscultation bilaterally, no rhonchi, rales, wheezing or rubs. Musculoskeletal: No deformity, no bruising or swelling noted, tender to palpation over the coccyx, muscle strength strong and equal, peripheral pulse strong, no edema, no cyanosis, cautious gait and station, unable to sit comfortably Course Course Emergency Course: Portions of this record may have been created with voice recognition software. Level of Care: Express Care Visit Vital Signs Vital signs: Vital signs reviewed MDM - Back Pain/Injury MDM Narrative Medical decision making narrative: At the time of visit patient is resting comfortably on exam table. X-ray of the sacrum/coccyx was performed. X-ray of the coccyx shows a possibly minimally displaced transverse fracture. Supportive measures were discussed with the patient she voiced understanding of discharge instructions and agrees to treatment plan. Will send in prescription for some tramadol for pain and instructed her to take daily Colace-stool softener. Supportive measures were discussed with the patient and she voiced understanding discharge instructions and agrees
[2023-01-28 15:26] VITALS: BP 164/100; PULSE 99; RESP 18; TEMP 36.4; O2SAT 100
== END 2023-01-28 16:02 | disposition home or self-care (01) ==
PROVIDERS: Emergency Provider Nurse Practitioner Family; PCP Family Medicine
DX: S32.2XXA Fracture of coccyx, initial encounter for closed fracture (principal); W08.XXXA Fall from other furniture, initial encounter; M19.90 Unspecified osteoarthritis, unspecified site; I25.10 Atherosclerotic heart disease of native coronary artery without angina pectoris; I10 Essential (primary) hypertension
CPT/HCPCS: 72220; 99213; G0463